=== PATIENT | female | born 1935 | race Hispanic/Latino ===

== ENCOUNTER 2017-03-09 17:09 | Emergency (ER) | payer MEDICARE ==
[2017-03-09 17:20] VITALS: BMI 22.1
[2017-03-09] MEDS ORDERED: Sodium Chloride 0.9% 500 ML IV STA (17:48)
--- NOTE | 2017-03-09 18:05 | ED PDOC ---
Arrival/HPI - General Chief Complaint: Abdominal Pain Time Seen by Provider: 03/09/17 17:27 Historian: Patient - History of Present Illness Narrative History of Present Illness (Text): 03/09/17 18:10 81 yo F w/ PMH of HTN and high cholesterol, reports 2 day h/o generalized weakness, chills, bodyaches, headache, constant upper abdominal discomfort, nausea, dizziness described as lightheadedness when standing only with no vertigo since. Patient was well just days prior to the start of symptoms. States that she took tylenol at 4pm with improvement of her headache. She adds that she just got her flu shot last week. Also reports having labs done at pmd' s office 2 days ago, was told her platelets were low, had labs repeated yesterday and does not know the results of those test. She adds when the EMS arrived to her home, her BP was checked and was 160/90. Reports (-) worsening of symptoms with movement of head. Otherwise: (-) fever, (-) URI symptoms, (-) rash, (-) sore throat, (-) trauma, (-) tinnitus, (-) hearing loss, (-) chest pain, (-) dyspnea, (-) urinary symptoms, (-) vomiting, (-) diarrhea, (-) syncope , (-) GI bleeding, (-) sick contacts, (-) recent travel, (-) h/o migraine headaches or similar headaches in the past. PMD Condo Past Medical History - Provider Review Nursing Documentation Reviewed: Yes - Infectious Disease Hx of Infectious Diseases: None - Tetanus Immunization Tetanus Immunization: Up to Date - Cardiac Hx Hypertension: Yes Hx Pacemaker: No - Pulmonary Hx Respiratory Disorders: No - Neurological Hx Transient Ischemic Attacks (TIA): Yes - HEENT Hx Cataracts: Yes Hx Glaucoma: Yes Other/Comment: Cataract sx - Renal Hx Renal Disorder: No - Endocrine/Metabolic Hx Endocrine Disorders: No - Hematological/Oncological Hx Blood Disorders: No Hx Blood Transfusions: No Hx Blood Transfusion Reaction: No Other/Comment: Viamin B12 deficiency - Integumentary Hx Dermatological Disorder: No - Musculoskeletal/Rheumatological Hx Arthritis: Yes - Gastrointestinal Hx Gastroesophageal Reflux: Yes - Genitourinary/Gynecological Hx Genitourinary Disorders: No - Psychiatric Hx Emotional Abuse: No Hx Physical Abuse: No Hx Substance Use: No - Past Surgical History Past Surgical History: No Previous - Surgical History Hx Appendectomy: Yes Hx Cholecystectomy: Yes Hx Hysterectomy: Yes - Anesthesia Hx Anesthesia: Yes Hx Anesthesia Reactions: No Hx Malignant Hyperthermia: No - Suicidal Assessment Feels Threatened In Home Enviroment: No Family/Social History - Physician Review Nursing Documentation Reviewed: Yes Family/Social History: No Known Family HX Smoking Status: Never Smoked Hx Alcohol Use: No Hx Substance Use: No Hx Substance Use Treatment: No Allergies/Home Meds Allergies/Adverse Reactions: Allergies shrimp Allergy (Verified 06/10/16 05:21) ANAPHYLAXIS codeine Adverse Reaction (Verified 06/10/16 05:21) ANAPHYLAXIS metronidazole [From Flagyl] Adverse Reaction (Verified 06/12/16 09:11) hallucinations Home Medications: Home Meds Medication Instructions Recorded Confirmed Cyanocobalamin [Vitamin B12 1000 3,000 mcg PO DAILY 05/14/13 03/09/17 mcg Tab] Folic Acid 1 mg PO DAILY 05/14/13 03/09/17 Latanoprost 0.005% Opht [Xalatan 1 drop OU DAILY 05/14/13 03/09/17 Opht] Omeprazole [Prilosec] 20 mg PO QAM 05/14/13 03/09/17 Simvastatin 40 mg PO DAILY 05/14/13 03/09/17 amLODIPine [Norvasc] 5 mg PO QAM 05/14/13 03/09/17 Ascorbate Calcium [Vitamin C] 500 mg PO DAILY 06/10/16 03/09/17 Aspirin [Ecotrin] 162 mg PO DAILY 06/10/16 03/09/17 Ergocalciferol (Vitamin D2) 4,000 unit PO DAILY 06/10/16 03/09/17 [Vitamin D] Review of Systems - Review of Systems Constitutional: Normal, Fatigue. absent: Weight Change, Fevers ENT: Normal. absent: Sore Throat, Rhinorrhea, Sinus Congestion Respiratory: Normal. absent: SOB, Cough, Sputum Cardiovascular: Normal. absent: Chest Pain, Palpitations, Edema Gastrointestinal: Normal, Abdominal Pain, Nausea. absent: Constipation, Diarrhea, Vomiting Genitourinary Female: Normal. absent: Dysuria, Frequency, Hematuria Musculoskeletal: Normal. absent: Arthralgias, Back Pain, Neck Pain Skin: Normal. absent: Rash, Pruritis, Skin Lesions Neurological: Normal, Headache, Dizziness. absent: Focal Weakness Physical Exam - Physical Exam Narrative Physical Exam (Text): 03/09/17 18:19 GENERAL APPEARANCE: Patient is awake, alert, oriented x 3, in no acute distress. SKIN: Warm, dry; (-) cyanosis. HEAD: (-) scalp swelling or tenderness. EYES: (-) conjunctival pallor. ENMT: TMs normal. Mucous membranes dry. NECK: (-) tenderness, (-) stiffness, (-) lymphadenopathy. Carotids: (-) bruit. CHEST AND RESPIRATORY: (-) rales, (-) rhonchi, (-) wheezes; breath sounds equal bilaterally. HEART AND CARDIOVASCULAR: (-) irregularity; (-) murmur, (-) gallop. ABDOMEN AND GI: Soft; (-) distention, (-) tenderness, (-) rebound, (-) guarding , (-) palpable masses, (-) flank tenderness. EXTREMITIES: (-) deformity; (-) edema. Distal pulses: present. NEURO AND PSYCH: Mental status as above. financial brokers: (+) horizontal nystagmus; Pupils equal & reactive, EOMI, (-) facial asymmetry; (-) dysarthria; tongue and uvula midline. Strength and DTRs symmetric. Gait: normal. Vital Signs Temp Pulse Resp BP Pulse Ox 03/09/17 20:37 77 17 141/75 98 03/09/17 19:33 71 16 145/72 100 03/09/17 18:45 99.0 F 03/09/17 17:28 97.9 F 75 18 147/69 100 Medical Decision Making ED Course and Treatment: 03/09/17 18:19 81 yo F w/ PMH of HTN and high cholesterol, reports 2 day h/o generalized weakness, chills, bodyaches, headache, constant upper abdominal discomfort, nausea, dizziness described as lightheadedness when standing only with no vertigo since. DDx: r/o UTI, viral illness, dehydration Plan : - Labs - EKG - CXR - IVF - Pepcid IV / zofran IV - CT head - UA Rectal T 99. EKG : NSR at 76 bpm, normal axis, (-) acute ST changes, as read by BOSSMAN. CXR : NAD, as read by BOSSMAN 03/09/17 18:[address]: Creator : Rudy Zuniga COMPARISON: Comparison made with prior CT scan brain 10/03/2013 FINDINGS: HEMORRHAGE: No acute parenchymal, subarachnoid nor extra-axial hemorrhage. BRAIN: Mild chronic periventricular white matter ischemic changes again seen extending peripherally into the deep and to a lesser degree scattered about subcortical white matter both cerebral hemispheres. In addition, there are a few tiny scattered chronic bilateral basal nuclei lacunar type infarcts. . Mild to moderate generalized volume loss. VENTRICLES: No obstructive hydrocephalus CALVARIUM: No acute calvarial fractures however the calvarium is somewhat dense in appearance. . PARANASAL SINUSES: Visualized paranasal sinuses are well-developed and currently well-aerated. MASTOID AIR CELLS: There is mild sclerosis and under pneumatization of the inferior aspect right mastoid air complex compared to the left side OTHER FINDINGS: Re- demonstrated are changes of right-sided cataract surgery. IMPRESSION: No acute intracranial hemorrhage. 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 Mild-moderate generalized volume loss. The calvarium is somewhat dense in appearance nonspecific. Clinical correlation with laboratory values such as but not limited to calcium - phosphate product suggested. Rule out renal osteodystrophy or other metabolic abnormality Labs reviewed : wbc, hgb/hct and platelets are wnl, CMP is wnl. UA and rapid flu still pending. On re-evaluation, patient states that she feels well, sitting up in bed in no acute distress. Lab, CXR and CT results d/w the patient and her daughter. VS : P 71 BP 145/72 R 16 O2sat 100%RA. Rapid flu (-), UA shows slight UTI. Macrobid po ordered. Patient and daughter notified of UA results. On re-evaluation, patient states that she feels well, denies any headache, dizziness, CP, SOB, N/V or abdominal pain at this time. On exam, patient remains awake, alert and oriented x3. Lungs CTA, cardiac RRR, abdomen is soft and non-tender, no CVA tenderness. Repeat neuro exam shows no focal findings. Patient able to stand up out of bed and ambulate to the bathroom without assistance with a steady gait. VS : P 77 BP 141/75 R 17 O2sat 98%RA. Patient states that she lives with her , who is very independent and her daughter is able to check in on her daily, she states that she would rather go home and feels comfortable being d/c with outpt f/u with pmd. Advised to follow up with primary care physician in 1-2 days without fail. Advised to take medication as prescribed. Return to the emergency room at any time for any new or worsening symptoms. Patient states she fully agrees with and understands discharge instructions. States that she agrees with the plan and disposition. Verbalized and repeated discharge instructions and plan. I have given the patient opportunity to ask any additional questions. - Lab Interpretations Lab Results: 03/09/17 17:50 03/09/17 17:50 Lab Results 03/09/17 19:18: Influenza Typ A,B (EIA) Negative for flu a/b 03/09/17 19:10: Urine Color Straw, Urine Appearance Clear, Urine pH 6.5, Ur Specific Bath <= 1.005, Urine Protein Negative, Urine Glucose (UA) Negative, Urine Ketones Negative, Urine Blood Trace-lysed H, Urine Nitrate Negative, Urine Bilirubin Negative, Urine Urobilinogen 0.2, Ur Leukocyte Esterase Trace H , Urine RBC 0 - 2, Urine WBC 0 - 2, Ur Epithelial Cells 0 - 2, Urine Bacteria Occ 03/09/17 17:50: Sodium 139, Potassium 3.9, Chloride 104, Carbon Dioxide 21, Anion Gap 18, BUN 12, Creatinine 0.7, Est GFR ( Amer) > 60, Est GFR (Non- Af Amer) > 60, Random Glucose 185 H, Calcium 9.8, Total Bilirubin 0.7, AST 27, ALT 28, Alkaline Phosphatase 99, Troponin I < 0.01, Total Protein 7.3, Albumin 4.5, Globulin 2.8, Albumin/Globulin Ratio 1.6, Lipase 54 03/09/17 17:50: PT 11.8, INR 1.09 H, APTT 26.5 03/09/17 17:50: WBC 6.2, RBC 4.16, Hgb 13.4, Hct 38.0, MCV 91.3, MCH 32.2, MCHC 35.3, RDW 13.1, Plt Count 193, MPV 11.9 H, Gran % 67.2, Lymph % (Auto) 26.2, [place] % (Auto) 5.3, Eos % (Auto) 1.0 L, Baso % (Auto) 0.3, Gran # 4.17, Lymph # 1.6, [place] # 0.3, Eos # 0.1, Baso # 0.02 I have reviewed the lab results: Yes - RAD Interpretation Radiology Orders: 03/09/17 17:46 HEAD W/O CONTRAST [CT] Stat 03/09/17 17:47 CHEST ONE VIEW [RAD] Stat Mower Mechanic: Radiologist - EKG Interpretation Interpreted by ED Physician: Yes Type: 12 lead EKG - Medication Orders Current Medication Orders: Discontinued Medications Famotidine (Pepcid) 20 mg IVP STAT STA Stop: 03/09/17 17:50 Last Admin: 03/09/17 18:41 Dose: 20 mg IVP Administration Document 03/09/17 18:41 SF (Rec: 03/09/17 18:41 SF [facility] [id number]) Charges for Administration # of IVP Administrations 1 Sodium Chloride (Sodium Chloride 0.9%) 500 mls @ 500 mls/hr IV .Q1H STA Stop: 03/09/17 18:47 Last Admin: 03/09/17 18:42 Dose: 500 mls/hr eMAR Start Stop Document 03/09/17 18:42 SF (Rec: 03/09/17 18:42 SF [facility] [id number]) Intravenous Solution Start Date 03/09/17 Start Time 18:30 End Date 03/09/17 End time 19:30 Total Infusion Time 60 Nitrofurantoin Macrocrystals (Macrobid) 100 mg PO ONCE ONE Stop: 03/09/17 20:22 Last Admin: 03/09/17 20:49 Dose: 100 mg Ondansetron HCl (Zofran Inj) 4 mg IVP STAT STA Stop: 03/09/17 17:50 Last Admin: 03/09/17 18:41 Dose: 4 mg IVP Administration Document 03/09/17 18:41 SF (Rec: 03/09/17 18:41 SF [facility] [id number]) Charges for Administration # of IVP Administrations 1 - PA / BSA OFFICER / Resident Statement MD/DO has examined the patient and agrees with the treatment plan. Disposition/Present on Arrival - Present on Arrival Any Indicators Present on Arrival: No History of DVT/PE: No History of Uncontrolled Diabetes: No Urinary Catheter: No History of Decub. Ulcer: No History Surgical Site Infection Following: None - Disposition Have Diagnosis and Disposition been Completed?: Yes Diagnosis: UTI (urinary tract infection), Weakness, Dizziness Disposition: HOME/ ROUTINE Disposition Time: 20:59 Patient Plan: Discharge Patient Problems: Current Active Problems Problem Status Onset Dizziness Acute UTI (urinary tract infection) Acute Weakness Acute Condition: IMPROVED Discharge Instructions (ExitCare): Urinary Tract Infection in Women (ED), Weakness (ED), Dizziness (ED) Print Language: ERITREAN Additional Instructions: Thank you for letting us take care of you today. You were treated for weakness, UTI, dizziness. The emergency medical care you received today was directed at your acute symptoms. If you were prescribed any medication, please fill it and take as directed. It may take several days for your symptoms to resolve. Return to the Emergency Department if your symptoms worsen, do not improve, or if you have any other problems. Please contact your doctor in 2 days for re-evaluation and follow up. Bring any paperwork you were given at discharge with you along with any medications you are taking to your follow up visit. Our treatment cannot replace ongoing medical care by a primary care provider (PCP) outside of the emergency department. Thank you for allowing the [facility] team to be part of your care today. If you had an X-Ray or CT scan: A Radiologist will review the ED reading if any change in treatment is needed we will contact you. If you had a urine culture: It will take several days for the results, if any change in treatment is needed we will contact you. Prescriptions: Nitrofurantoin Macrocrystals [Macrobid] 100 mg PO BID #[id number] Referrals: Tone Bernard, [Primary Care Provider] - Follow up with primary Forms: [place] [facility] (Estonian)
[2017-03-09 18:20] LABS: ALB/GLOB RATIO 1.6 (1.1-1.8); ALKALINE PHOSPHATASE 99 U/L (38-126); ALT/SGPT 28 U/L (7-56); AST/SGOT 27 U/L (14-36); BILIRUBIN,TOTAL 0.7 mg/dL (0.2-1.3); BLOOD UREA NITROGEN 12 mg/dL (7-21); CALCIUM 9.8 mg/dL (8.4-10.5); CARBON DIOXIDE 21 mmol/L (21-33); CHLORIDE 104 mmol/L (98-107); GFR AFRICAN-AMERICAN > 60; GLUCOSE,RANDOM 185 mg/dL (70-110); LIPASE 54 U/L (23-300); POTASSIUM 3.9 mmol/L (3.6-5.0); SODIUM 139 mmol/L (132-148); TOTAL PROTEIN 7.3 g/dL (5.8-8.3)
[2017-03-09 18:25] LABS: BASO # 0.02 K/mm3 (0.0-2.0); BASO % 0.3 % (0.0-3.0); EOS # 0.1 (0.0-0.7); GRAN # 4.17 (1.4-6.5); GRAN % 67.2 % (50.0-68.0); LYMPH # 1.6 (1.2-3.4); LYMPH % 26.2 % (22.0-35.0); MEAN CELL VOLUME 91.3 fl (80.0-105.0); MEAN CORPUSCULAR HEMOGLOBIN 32.2 pg (25.0-35.0); MEAN CORPUSCULAR HGB CONC 35.3 g/dl (31.0-37.0); MEAN PLATELET VOLUME 11.9 fl (7.0-11.0); MONO # 0.3 (0.1-0.6); MONO % 5.3 % (1.0-6.0); RED CELL DISTRIBUTION WIDTH 13.1 % (11.5-14.5); WHITE BLOOD COUNT 6.2 10^3/ul (4.5-11.0)
--- NOTE | 2017-03-09 18:31 | CT ---
PROCEDURE: CT scan of the brain dated 03/09/2017 HISTORY: Weakness. COMPARISON: Comparison made with prior CT scan brain 10/03/2013 TECHNIQUE: Axial computed tomography images were obtained through the head/brain without intravenous contrast. Radiation dose: Total exam DLP = 843.77 mGy-cm. This CT exam was performed using one or more of the following dose reduction techniques: Automated exposure control, adjustment of the mA and/or kV according to patient size, and/or use of iterative reconstruction technique. FINDINGS: HEMORRHAGE: No acute parenchymal, subarachnoid nor extra-axial hemorrhage. BRAIN: Mild chronic periventricular white matter ischemic changes again seen extending peripherally into the deep and to a lesser degree scattered about subcortical white matter both cerebral hemispheres. In addition, there are a few tiny scattered chronic bilateral basal nuclei lacunar type infarcts. . Mild to moderate generalized volume loss. VENTRICLES: No obstructive hydrocephalus CALVARIUM: No acute calvarial fractures however the calvarium is somewhat dense in appearance. . PARANASAL SINUSES: Visualized paranasal sinuses are well-developed and currently well-aerated. MASTOID AIR CELLS: There is mild sclerosis and under pneumatization of the inferior aspect right mastoid air complex compared to the left side OTHER FINDINGS: Re- demonstrated are changes of right-sided cataract surgery. IMPRESSION: No acute intracranial hemorrhage. 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 Mild-moderate generalized volume loss. The calvarium is somewhat dense in appearance nonspecific. Clinical correlation with laboratory values such as but not limited to calcium - phosphate product suggested. Rule out renal osteodystrophy or other metabolic abnormality
[2017-03-09 18:32] LABS: INR 1.09 (0.93-1.08); PARTIAL THROMBOPLASTIN TIME 26.5 Seconds (23.7-30.8)
[2017-03-09 18:36] LABS: TROPONIN I < 0.01 ng/mL
[2017-03-09 18:45] VITALS: TEMP 99
[2017-03-09 19:49] LABS: PH,URINE 6.5 (4.7-8.0); URINE BILIRUBIN NEGATIVE (NEGATIVE); URINE BLOOD TRACE-LYSED (NEGATIVE); URINE GLUCOSE (UA) NEGATIVE (NEGATIVE); URINE KETONE NEGATIVE (NEGATIVE); URINE LEUKOCYTE ESTERASE TRACE Leu/uL (NEGATIVE); URINE PROTEIN NEGATIVE mg/dL (<30 mg/dL); URINE UROBILINOGEN 0.2 E.U./dL (<1 E.U./dL)
[2017-03-09 19:54] LABS: URINE APPEARANCE CLEAR (CLEAR); URINE COLOR STRAW (YELLOW)
[2017-03-09 20:01] LABS: URINE BACTERIA OCC (NEG); URINE EPITHELIAL CELLS 0 - 2 /hpf (0-5); URINE RBC 0 - 2 /hpf (0-2); URINE WBC 0 - 2 /hpf (0-6)
[2017-03-09 20:37] VITALS: BP 141/75; PULSE 77; RESP 17; O2SAT 98
--- NOTE | 2017-03-10 09:50 | RAD ---
PROCEDURE: CHEST RADIOGRAPH, 1 VIEW HISTORY: weakness COMPARISON: Comparison chest 06/10/2016 FINDINGS: LUNGS: Mild hyperinflation ; rule out underlying chronic changes of emphysema or COPD. . Lung khalil clear without focal consolidation. Suspect minor biapical pleural thickening left greater than right. PLEURA: As above. No pneumothorax or pleural fluid seen. CARDIOVASCULAR: Normal. OSSEOUS STRUCTURES: No significant abnormalities. VISUALIZED UPPER ABDOMEN: Normal. OTHER FINDINGS: None. IMPRESSION: Mild hyperinflation. Rule out chronic changes of emphysema or COPD. No focal consolidation. . Mild biapical pleural thickening left greater than right
--- NOTE | 2017-03-10 14:26 | CARD ---
APPROVED REPORT EKG Measurement Heart [id number] <Conclusion> Normal sinus rhythm Base line carey polanco
== END 2017-03-09 23:00 | disposition home or self-care (01) ==
LOC: ED 17:09
DX: N39.0 Urinary tract infection, site not specified (principal); R42 Dizziness and giddiness; R53.1 Weakness; I10 Essential (primary) hypertension; E78.00 Pure hypercholesterolemia, unspecified
CPT/HCPCS: 70450; 71010; 80053; 81001; 83690; 84484; 85025; 85610; 85730; 87086; 87804; 93005; 96361; 96374; 96375; 99285; J2405; J7040

== ENCOUNTER 2017-03-15 20:49 | Observation (INO) | payer MEDICARE ==
--- NOTE | 2017-03-15 21:37 | ED PDOC ---
Arrival/HPI - General Time Seen by Provider: 03/15/17 20:52 Historian: Patient - History of Present Illness Narrative History of Present Illness (Text): 03/15/17 21:20 Lily Andino is an 81 year old female, whose past medical history includes arthritis, HTN, and high cholesterol, who presents to the emergency department complaining of near syncope and lightheadedness while walking today. Patient states that she was prescribed Zoloft by her PMD four days ago and has had associated epigastric pain with a mild sinus headache. Patient denies any chest pain, shortness of breath, diarrhea, urinary symptoms, or any other complaints at this time. Patient seen 6 days ago by me, complaining of body aches. CT head negative. Cxray negative. Flu negative. Ucx negative. Cxray negative. Trop negative PMD: Dr. Pop 03/15/17 23:59 03/16/17 00:00 Time/Duration: 1-3 hours Symptom Onset: Sudden Activities at Onset: Light Context: Home Past Medical History - Provider Review Nursing Documentation Reviewed: Yes - Infectious Disease Hx of Infectious Diseases: None - Tetanus Immunization Tetanus Immunization: Up to Date - Cardiac Hx Hypertension: Yes Hx Pacemaker: No - Pulmonary Hx Respiratory Disorders: No - Neurological Hx Transient Ischemic Attacks (TIA): Yes - HEENT Hx Cataracts: Yes Hx Glaucoma: Yes Other/Comment: Cataract sx - Renal Hx Renal Disorder: No - Endocrine/Metabolic Hx Endocrine Disorders: No - Hematological/Oncological Hx Blood Disorders: No Hx Blood Transfusions: No Hx Blood Transfusion Reaction: No Other/Comment: Viamin B12 deficiency - Integumentary Hx Dermatological Disorder: No - Musculoskeletal/Rheumatological Hx Arthritis: Yes - Gastrointestinal Hx Gastroesophageal Reflux: Yes - Genitourinary/Gynecological Hx Genitourinary Disorders: No - Psychiatric Hx Emotional Abuse: No Hx Physical Abuse: No Hx Substance Use: No - Past Surgical History Past Surgical History: No Previous - Surgical History Hx Appendectomy: Yes Hx Cholecystectomy: Yes Hx Hysterectomy: Yes - Anesthesia Hx Anesthesia: Yes Hx Anesthesia Reactions: No Hx Malignant Hyperthermia: No - Suicidal Assessment Feels Threatened In Home Enviroment: No Family/Social History - Physician Review Nursing Documentation Reviewed: Yes Family/Social History: No Known Family HX Smoking Status: Never Smoked Hx Alcohol Use: No Hx Substance Use: No Hx Substance Use Treatment: No Allergies/Home Meds Allergies/Adverse Reactions: Allergies shrimp Allergy (Verified 06/10/16 05:21) ANAPHYLAXIS codeine Adverse Reaction (Verified 06/10/16 05:21) ANAPHYLAXIS metronidazole [From Flagyl] Adverse Reaction (Verified 06/12/16 09:11) hallucinations Home Medications: Home Meds Medication Instructions Recorded Confirmed Cyanocobalamin [Vitamin B12 1000 3,000 mcg PO DAILY 05/14/13 03/09/17 mcg Tab] Folic Acid 1 mg PO DAILY 05/14/13 03/09/17 Latanoprost 0.005% Opht [Xalatan 1 drop OU DAILY 05/14/13 03/09/17 Opht] Omeprazole [Prilosec] 20 mg PO QAM 05/14/13 03/09/17 Simvastatin 40 mg PO DAILY 05/14/13 03/09/17 amLODIPine [Norvasc] 5 mg PO QAM 05/14/13 03/09/17 Ascorbate Calcium [Vitamin C] 500 mg PO DAILY 06/10/16 03/09/17 Aspirin [Ecotrin] 162 mg PO DAILY 06/10/16 03/09/17 Ergocalciferol (Vitamin D2) 4,000 unit PO DAILY 06/10/16 03/09/17 [Vitamin D] Review of Systems - Physician Review All systems were reviewed & negative as marked: Yes - Review of Systems Constitutional: absent: Fevers, Night Sweats Eyes: absent: Vision Changes ENT: absent: Hearing Changes Respiratory: absent: SOB, Cough Cardiovascular: Syncope (near syncope). absent: Chest Pain Gastrointestinal: Abdominal Pain (epigastric pain) Genitourinary Female: absent: Dysuria, Frequency Musculoskeletal: absent: Arthralgias Skin: absent: Rash, Pruritis Neurological: Other (lightheadedness) Endocrine: absent: Diaphoresis Hemo/Lymphatic: absent: Adenopathy, Easy Bleeding Psychiatric: absent: Depression Physical Exam Vital Signs Reviewed: Yes Vital Signs Temp Pulse Resp BP Pulse Ox 03/15/17 21:15 98.1 F 68 18 170/92 H 99 Temperature: Afebrile Blood Pressure: Hypertensive Pulse: Regular Respiratory Rate: Normal Appearance: Positive for: Well-Appearing, Non-Toxic, Comfortable Pain Distress: None Mental Status: Positive for: Alert and Oriented X 3 - Systems Exam Head: Present: Atraumatic, Normocephalic Pupils: Present: PERRL Extroacular Muscles: Present: EOMI Conjunctiva: Present: Normal Mouth: Present: Moist Mucous Membranes Neck: Present: Normal Range of Motion Respiratory/Chest: Present: Clear to Auscultation, Good Air Exchange. No: Respiratory Distress, Accessory Muscle Use Cardiovascular: Present: Regular Rate and Rhythm, Normal S1, S2. No: Murmurs Abdomen: Present: Normal Bowel Sounds. No: Tenderness, Distention, Peritoneal Signs Back: Present: Normal Inspection Upper Extremity: Present: Normal Inspection. No: Cyanosis, Edema Lower Extremity: Present: Normal Inspection. No: Edema Neurological: Present: GCS=15, CN II-XII Intact, Speech Normal, Motor Func Grossly Intact, Normal Sensory Function, Normal Cerebellar Funct, Norm Deep Tendon Reflexes, Gait Normal, Memory Normal, Normal 2Pt Descrimination Skin: Present: Warm, Dry, Normal Color. No: Rashes Psychiatric: Present: Alert, Oriented x 3, Normal Insight, Normal Concentration Medical Decision Making ED Course and Treatment: 03/15/17 21:39 Impression: 81 year old female complaining of near syncope and lightheadedness while walking today. Neurologically intact in ED Differential Diagnosis included but are not limited to: Plan: -- Head CT w/o contrast -- Chest x-ray -- Urinalysis -- Labs -- Reassess and disposition Prior Visits: Notes and results from previous visits were reviewed. Patient last seen in the ED on 03/09/17 for generalized weakness, chills, bodyaches, headache, constant upper abdominal discomfort, nausea, dizziness described as lightheadedness when standing only with no vertigo. Patient was discharged home after negative Rapid Flu test and negative Urine Culture. Progress Notes: 03/15/17 23:30 CT Head Without Intravenous Contrast: Dictated and Authenticated by: Kylee Elias MD FINDINGS: Brain: No acute intracranial hemorrhage. Age-appropriate periventricular white matter disease. No edema. Ventricles: Age-appropriate ventriculomegaly. Bones: No acute displaced fracture. Sinuses: Unremarkable as visualized. No acute sinusitis. Mastoid air cells: Unremarkable as visualized. No mastoid effusion. IMPRESSION: No acute intracranial hemorrhage, or suspicious mass effect. 03/16/17 00:56 EKG shows NSR at 68bpm with normal intervals and no st changes. Labs grossly normal. Cxray negative. Aspirin given. Will admit for near syncope. 03/16/17 01:[address] Carver, who is aware and states to admit patient to telemetry observation for near syncope under his name. 03/16/17 01:25 - Lab Interpretations Lab Results: 03/15/17 23:10 03/15/17 23:10 Lab Results 03/15/17 23:10: WBC 7.7 D, RBC 4.37, Hgb 14.1, Hct 39.3, MCV 89.9, MCH 32.3, MCHC 35.9, RDW 12.8, Plt Count 201, MPV 11.5 H, Gran % 65.8, Lymph % (Auto) 27.6 , [place] % (Auto) 5.6, Eos % (Auto) 0.7 L, Baso % (Auto) 0.3, Gran # 5.06, Lymph # 2.1, [place] # 0.4, Eos # 0.1, Baso # 0.02 03/15/17 23:10: Urine Color Yellow, Urine Appearance Clear, Urine pH 6.0, Ur Specific [place] <= 1.005, Urine Protein Negative, Urine Glucose (UA) Negative, Urine Ketones Negative, Urine Blood Small H, Urine Nitrate Negative, Urine Bilirubin Negative, Urine Urobilinogen 0.2, Ur Leukocyte Esterase Negative, Urine RBC 1 - 3, Urine WBC 0 - 2, Ur Epithelial Cells 1 - 3, Urine Bacteria Rare 03/15/17 23:10: PT 11.5, INR 1.05, APTT 20.0 L 03/15/17 23:10: Sodium 136, Potassium 4.2, Chloride 101, Carbon Dioxide 22, Anion Gap 17, BUN 12, Creatinine 0.7, Est GFR ( Amer) > 60, Est GFR (Non- Af Amer) > 60, Random Glucose 121 H, Calcium 9.9, Phosphorus 3.2, Magnesium 2.2 , Total Bilirubin 1.0, AST 31, ALT 31, Alkaline Phosphatase 141 H D, Total Creatine Kinase 76, Troponin I < 0.01, NT-Pro-B Natriuret Pep 286, Total Protein 7.5, Albumin 4.6, Globulin 2.9, Albumin/Globulin Ratio 1.6 I have reviewed the lab results: Yes - RAD Interpretation Radiology Orders: 03/15/17 21:37 HEAD W/O CONTRAST [CT] Stat CHEST TWO VIEWS (PA/LAT) [RAD] Stat - Medication Orders Current Medication Orders: Discontinued Medications Aspirin (Aspirin Chewable) 324 mg PO STAT STA Stop: 03/16/17 00:48 Last Admin: 03/16/17 00:53 Dose: 324 mg - Scribe Statement The provider has reviewed the documentation as recorded by the Gilda Calloway Provider Scribe Attestation: All medical record entries made by the Gilda were at my direction and personally dictated by me. I have reviewed the chart and agree that the record accurately reflects my personal performance of the history, physical exam, medical decision making, and the department course for this patient. I have also personally directed, reviewed, and agree with the discharge instructions and disposition. Disposition/Present on Arrival - Present on Arrival Any Indicators Present on Arrival: No History of DVT/PE: No History of Uncontrolled Diabetes: No Urinary Catheter: No History Surgical Site Infection Following: None - Disposition Have Diagnosis and Disposition been Completed?: Yes Diagnosis: Near syncope Disposition: HOSPITALIZED Disposition Time: 00:56 Patient Problems: Current Active Problems Problem Status Onset Near syncope Acute Condition: GOOD
[2017-03-15 22:30] VITALS: BMI 22.3
--- NOTE | 2017-03-15 23:03 | CT ---
EXAM: CT Head Without Intravenous Contrast CLINICAL HISTORY: 81 years old, female; Signs and symptoms; Syncope and collapse; Additional info: Near syncope TECHNIQUE: Axial computed tomography images of the head/brain without intravenous contrast. All CT scans at this facility use one or more dose reduction techniques, viz.: automated exposure control; ma/kV adjustment per patient size (including targeted exams where dose is matched to indication; i.e. head); or iterative reconstruction technique. COMPARISON: CT - HEAD W/O CONTRAST 2017-03-09 18:19 FINDINGS: Brain: No acute intracranial hemorrhage. Age-appropriate periventricular white matter disease. No edema. Ventricles: Age-appropriate ventriculomegaly. Bones: No acute displaced fracture. Sinuses: Unremarkable as visualized. No acute sinusitis. Mastoid air cells: Unremarkable as visualized. No mastoid effusion. IMPRESSION: No acute intracranial hemorrhage, or suspicious mass effect.
[2017-03-15 23:23] LABS: URINE BILIRUBIN NEGATIVE (NEGATIVE); URINE BLOOD SMALL (NEGATIVE); URINE GLUCOSE (UA) NEGATIVE (NEGATIVE); URINE KETONE NEGATIVE (NEGATIVE); URINE LEUKOCYTE ESTERASE NEGATIVE Leu/uL (NEGATIVE); URINE PROTEIN NEGATIVE mg/dL (<30 mg/dL); URINE UROBILINOGEN 0.2 E.U./dL (<1 E.U./dL)
[2017-03-15 23:25] LABS: URINE APPEARANCE CLEAR (CLEAR); URINE COLOR YELLOW (YELLOW)
[2017-03-15 23:31] LABS: INR 1.05 (0.93-1.08)
[2017-03-15 23:34] LABS: ALB/GLOB RATIO 1.6 (1.1-1.8); ALKALINE PHOSPHATASE 141 U/L (38-126); ALT/SGPT 31 U/L (7-56); AST/SGOT 31 U/L (14-36); BLOOD UREA NITROGEN 12 mg/dL (7-21); CALCIUM 9.9 mg/dL (8.4-10.5); CARBON DIOXIDE 22 mmol/L (21-33); CHLORIDE 101 mmol/L (98-107); GFR AFRICAN-AMERICAN > 60; GLUCOSE,RANDOM 121 mg/dL (70-110); MAGNESIUM 2.2 mg/dL (1.7-2.2); PHOSPHOROUS 3.2 mg/dL (2.5-4.5); POTASSIUM 4.2 mmol/L (3.6-5.0); SODIUM 136 mmol/L (132-148); TOTAL PROTEIN 7.5 g/dL (5.8-8.3)
[2017-03-15 23:50] LABS: URINE BACTERIA RARE (NEG); URINE WBC 0 - 2 /hpf (0-6)
[2017-03-15 23:55] LABS: BASO # 0.02 K/mm3 (0.0-2.0); BASO % 0.3 % (0.0-3.0); EOS # 0.1 (0.0-0.7); EOS % 0.7 % (1.5-5.0); GRAN # 5.06 (1.4-6.5); GRAN % 65.8 % (50.0-68.0); HEMATOCRIT 39.3 % (36.0-48.0); LYMPH # 2.1 (1.2-3.4); LYMPH % 27.6 % (22.0-35.0); MEAN CELL VOLUME 89.9 fl (80.0-105.0); MEAN CORPUSCULAR HEMOGLOBIN 32.3 pg (25.0-35.0); MEAN CORPUSCULAR HGB CONC 35.9 g/dl (31.0-37.0); MEAN PLATELET VOLUME 11.5 fl (7.0-11.0); MONO # 0.4 (0.1-0.6); MONO % 5.6 % (1.0-6.0); RED CELL DISTRIBUTION WIDTH 12.8 % (11.5-14.5); WHITE BLOOD COUNT 7.7 10^3/ul (4.5-11.0)
[2017-03-16 00:01] LABS: TROPONIN I < 0.01 ng/mL
[2017-03-16 02:46] VITALS: O2SAT 98
[2017-03-16] MEDS ORDERED: Alum-Mag Hydrox-Simethicone Susp (30 mL) PO ONE (03:43)
[2017-03-16] MEDS ORDERED: Pantoprazole 40 mg EC Tab PO ONE (04:00)
[2017-03-16 05:57] VITALS: RESP 19
--- NOTE | 2017-03-16 08:51 | RAD ---
HISTORY: near syncope COMPARISON: 03/09/2017 TECHNIQUE: Chest PA and lateral FINDINGS: LUNGS: Pulmonary hyperinflation. Increased A-P diameter of the thorax. Consistent with COPD/emphysema. No infiltrate. Calcified nodular density at left base not seen on prior examination of 03/09/2017. Possible related to calcified costal cartilage. Followup advised. PLEURA: No significant pleural effusion identified. No pneumothorax apparent. CARDIOVASCULAR: Normal. OSSEOUS STRUCTURES: No significant abnormalities. VISUALIZED UPPER ABDOMEN: Normal. OTHER FINDINGS: None. IMPRESSION: Pulmonary emphysema. Calcified nodule at left base may be artifact due to costal cartilage calcification. Follow-up advised.
--- NOTE | 2017-03-16 09:18 | CP.PCM.HP ---
<Jayleen Dumas - Last Filed: 03/16/17 11:47> History of Present Illness - History of Present Illness History of Present Illness: PGY-2 h&p [address] Dr[address] Montoya 81 year old female with past medical history of arthritis, HTN, anxiety, high cholesterol, TIA, who presents to the emergency department complaining of near syncope and lightheadedness while walking today. Patient also reports general weakness and body aches for last 2 weeks. Patient was seen in ED last week, CT head, Cxr, flu, Ucx and trop were negative. Patient state that she was prescribed Zoloft by her PMD four days ago and has had associated epigastric pain. She states that for the past few days she has not been sleeping and has decreased appetite. She also reports hallucinations, patient states that she at times see shadows and objects on the wall. This started earlier this year. Patient has seen an eye doctor and psych. Patient denies any chest pain, shortness of breath, diarrhea, urinary symptoms, or any other complaints at this time. Patient denies any recent trauma, sick contacts or recent travels. PMH: arthritis, HTN, anxiety, high cholesterol, TIA PSH: appendectomy, cholecystectomy social hx: denies smoking, alcohol use, illicit drug use family hx: denies allergy: shrimp, codeine, metronidazole home meds: norvasc, simvastatin, latanoprost, asa, prilosec, folic acid, vit D, Vit B12, vit C Present on Admission - Present on Admission Any Indicators Present on Admission: No Review of Systems - Constitutional Constitutional: Fatigue. absent: Fever, Headache - EENT Eyes: absent: Change in Vision Nose/Mouth/Throat: absent: Nasal Congestion, Sore Throat - Cardiovascular Cardiovascular: absent: Chest Pain, Dyspnea, Leg Edema, Palpitations - Respiratory Respiratory: absent: Cough, Dyspnea, Hemoptysis - Gastrointestinal Gastrointestinal: absent: Abdominal Pain, Constipation, Diarrhea, Nausea, Vomiting - Genitourinary Genitourinary: absent: Dysuria, Hematuria - Musculoskeletal Musculoskeletal: absent: Arthralgias, Back Pain, Myalgias, Neck Pain, Numbness, Stiffness - Integumentary Integumentary: absent: Pruritus, Rash, Skin Ulcer, Sores - Neurological Neurological: Dizziness, Weakness. absent: Headaches, Loss of Vision, Syncope - Psychiatric Psychiatric: Anxiety, Change in Appetite, Hallucinations - Hematologic/Lymphatic Hematologic: absent: Easy Bleeding, Easy Bruising Past Patient History - Infectious Disease Hx of Infectious Diseases: None - Tetanus Immunizations Tetanus Immunization: Up to Date - Past Social History Smoking Status: Never Smoked - CARDIAC Hx Cardiac Disorders: Yes Hx Angina: No Hx Cardia Arrhythmia: No Hx Circulatory Problems: No Hx Congestive Heart Failure: No Hx Heart Murmur: No Hx Heart Transplant: No Hx Hypercholesterolemia: Yes Hx Hypertension: Yes Hx Internal Defibrillator: No Hx Mitral Valve Prolapse: No Hx Pacemaker: No Hx Peripheral Edema: No Hx Peripheral Vascular Disease: No - PULMONARY Hx Respiratory Disorders: No Hx Asthma: No Hx Bronchitis: No Hx Chronic Obstructive Pulmonary Disease (COPD): No Hx Emphysema: No Hx Pneumonia: No Hx Respiratory Aspiration: No Hx Respiratory Tract Infection: No Hx Sleep Apnea: No Hx Tuberculosis: No - NEUROLOGICAL Hx Neurological Disorder: Yes Hx Alzheimer's Disease: No HX Cerebrovascular Accident: No Hx Dementia: No Hx Dizziness: Yes Hx Meningitis: No Hx Migraine: No Hx Parkinson's Disease: No Hx Seizures: No Hx Transient Ischemic Attacks (TIA): Yes - HEENT Hx HEENT Problems: Yes Hx Blind: No Hx Cataracts: Yes Hx Deafness: No Hx Difficulty Chewing: No Hx Epistaxis: No Hx Glaucoma: Yes Hx Macular Degeneration: No - RENAL Hx Chronic Kidney Disease: No Hx Dialysis: No Hx Kidney Stones: No Hx Neurogenic Bladder: No Hx Pyelonephritis: No Hx Renal (Kidney) Cancer: No Hx Renal Failure: No - ENDOCRINE/METABOLIC Hx Endocrine Disorders: No Hx Adrenal Cancer: No Hx Diabetes Insipidus: No Hx Diabetes Mellitus Type 1: No Hx Diabetes Mellitus Type 2: No Hx Hyperthyroidism: No Hx Hypothyroidism: No Hx Systemic Lupus Erythematosus: No - HEMATOLOGICAL/ONCOLOGICAL Hx Blood Disorders: No Hx AIDS: No Hx Anemia: No Hx Cancer: No Hx Chemotherapy: No Hx Cirrhosis: No Hx Hemophilia: No Hx Hepatitis A: No Hx Hepatitis B: No Hx Hepatitis C: No Hx Human Immunodeficiency Virus (HIV): No Hx Metastesis: No Hx Shingles: No Hx Sickle Cell Disease: No Hx Unexplained Bleeding: No - INTEGUMENTARY Hx Dermatological Problems: No Hx Basil Cell: No Hx Eczema: No Hx Melanoma: No Hx Psoriasis: No Hx Squamous Cell: No - MUSCULOSKELETAL/RHEUMATOLOGICAL Hx Musculoskeletal Disorders: Yes Hx Arthritis: Yes Hx Back Pain: No Hx Degenerative Joint Disease: No Hx Falls: No Hx Fractures: No Hx Gout: No Hx Herniated Disk: No Hx Myasthenia Gravis: No Hx Osteoarthritis: No Hx Osteomyelitis: No Hx Osteoporosis: No Hx Rhabdomyolysis: No Hx Spinal Stenosis: No Hx Unsteady Gait: No - GASTROINTESTINAL Hx Gastrointestinal Disorders: Yes Hx Colostomy: No Hx Crohn's Disease: No Hx Diverticulitis: No Hx Gall Bladder Disease: Yes Hx Gastroesophageal Reflux: Yes Hx Ileostomy: No Hx Liver Failure: No Hx Pancreatitis: No HX Swallowing Problems: No Hx Ulcer: No - GENITOURINARY/GYNECOLOGICAL Hx Genitourinary Disorders: Yes Hx Hematuria: No Hx Incontinence: No Hx Sexually Transmitted Disorders: No Hx Urinary Tract Infection: Yes - PSYCHIATRIC Hx Psychophysiologic Disorder: Yes Hx Anxiety: Yes Hx Bipolar Disorder: No Hx Depression: No Hx Emotional Abuse: No Hx Hallucinations: No Hx Panic Symptoms: No Hx Paranoia: No Hx Post Traumatic Stress Disorder: No Hx Psychosis: No Hx Physical Abuse: No Hx Schizophrenia: No Hx Sexual Abuse: No - SURGICAL HISTORY Hx Surgeries: Yes Hx Amputation: No Hx Appendectomy: Yes Hx Cardiac Catheterization: No Hx Cholecystectomy: Yes Hx Coronary Stent: No Hx Gastric Bypass Surgery: No Hx Hysterectomy: No Hx Joint Replacement: No Hx Kidney Transplant: No Hx Liver Transplant: No Hx Mastectomy: No Hx Musculoskeletal Surgery: No Hx Open Heart Surgery: No Hx Orthopedic Surgery: No Hx Splenectomy: No Hx Valve Replacement: No - ANESTHESIA Hx Anesthesia: Yes Hx Anesthesia Reactions: No Hx Malignant Hyperthermia: No Meds Allergies/Adverse Reactions: Allergies Allergy/AdvReac Type Severity Reaction Status Date / Time shrimp Allergy ANAPHYLAXIS Verified 06/10/16 05:21 codeine AdvReac ANAPHYLAXIS Verified 06/10/16 05:21 metronidazole [From Flagyl] AdvReac hallucinati Verified 06/12/16 09:11 ons Physical Exam - Constitutional Appears: No Acute Distress - Head Exam Head Exam: ATRAUMATIC, NORMAL INSPECTION, NORMOCEPHALIC - Eye Exam Eye Exam: EOMI, Normal appearance - ENT Exam ENT Exam: Mucous Membranes Moist - Respiratory Exam Respiratory Exam: Clear to Auscultation Bilateral, NORMAL BREATHING PATTERN. absent: Decreased Breath Sounds, Rales, Rhonchi, Wheezes, Respiratory Distress - Cardiovascular Exam Cardiovascular Exam: REGULAR RHYTHM. absent: Tachycardia, Diastolic murmur, Systolic Murmur - GI/Abdominal Exam GI & Abdominal Exam: Normal Bowel Sounds, Soft. absent: Distended, Firm, Tenderness - Extremities Exam Extremities exam: Positive for: normal inspection. Negative for: pedal edema, tenderness - Neurological Exam Neurological exam: Alert, Oriented x3 - Skin Skin Exam: Dry, Intact, Normal Color, Warm Results - Vital Signs Recent Vital Signs: Last Vital Signs Temp 98.2 F 03/16/17 05:51 Pulse 71 03/16/17 05:51 Resp 19 03/16/17 05:51 BP 143/78 03/16/17 05:51 Pulse Ox 98 03/16/17 02:45 - Labs Result Diagrams: 03/15/17 23:10 03/15/17 23:10 Assessment & Plan - Assessment and Plan (Free Text) Assessment: 81 year old female with past medical history of arthritis, HTN, anxiety, high cholesterol, TIA, presents with near syncope and general weakness. Plan: 1. near syncope - most likely due to medications vs. anxiety - head Ct reviewed showed no acute intracranial hemorrhage, or suspicious mass effect - Physical therapy - psych consult 2. HTN - controlled - cont home mediation norvasc 3. hyperlipidemia - cont home med Lipitor <Bill Montoya S - Last Filed: 03/16/17 19:57> Results - Vital Signs Recent Vital Signs: Last Vital Signs Temp 97.9 F 03/16/17 12:00 Pulse 85 03/16/17 14:00 Resp 19 03/16/17 12:00 BP 145/83 03/16/17 12:00 Pulse Ox 98 03/16/17 02:45 - Labs Result Diagrams: 03/15/17 23:10 03/15/17 23:10 Assessment & Plan - Assessment and Plan (Free Text) Plan: Pt is seen and examined. Note of medical staff specialist reviewed and I am in agree with it. Reviewed Labs and medications. Reviewed notes. Pt was seen by Dr Mckinney and cleared to be discharged. She will f/u with Dr Mckinney and Dr Pop.
[2017-03-16] MEDS ORDERED: Latanoprost 2.5 ml Opht Soln OU SCH (10:00)
[2017-03-16 14:03] VITALS: BP 145/83; TEMP 97.9
[2017-03-16 16:59] VITALS: PULSE 85
--- NOTE | 2017-03-16 23:00 | CARD ---
APPROVED REPORT EKG Measurement Heart [id number] <Conclusion> Normal sinus rhythm Normal ECG
--- NOTE | 2017-03-17 01:40 | CON ---
DATE: SUBJECTIVE: The patient is an 81-year-old white female with an apparent approximately six months history of undergoing what appeared to be colored visual distortions, colored squares in her visual field. These have started in 05/2016 and has made her anxious. The patient has no prior psychiatric history. She does have a past history of arthritis, hypertension, hypercholesterolemia, TIA and who was complaining of near syncope and lightheadedness while walking as well as general weakness and body aches for at least two weeks. A CT scan of the head recently was negative. She is under the care of Dr. Abilio Pop, her PMD who started her on Zoloft several days ago and she has had some gastric distress since then (this was presumably for anxiety). She reports also she has not been sleeping and has had decreased appetite. She reports "hallucinations" and also see shadows an objects on the wall that also started earlier this year. She has seen a number of doctors for this, but these workups apparently with the neurologist and janitorial account manager have been nonproductive. She is a [place] of [place] and a high a school graduate. She has worked as a homemaker for many years, but is retired for 15 years. She had been young and her at 25 of what appears to be a blood clot. She has two children from that union. She has subsequently remarried and has been for over 37 years. She has one brother who is at her bedside. She has not had a history of substance use. She presently is being maintained on Lipitor, Norvasc, and Xalatan. She was tried on the benzodiazepine (Xanax) by her PMD previously. I will presently start her on low-dose Klonopin and would recommend a followup. Her symptoms have not appeared to be those of classical "hallucinations" and I have suggested that the patient continue outpatient monitoring, which she appears to be agreeable to. A CBC and differential was within normal limits. Urine drug screen showed a small amount of blood. Biochemical profile showed a slightly elevated glucose of 121 and alkaline phosphatase of 141. DIAGNOSIS: Uncertain, rule out visual hallucinations. I have started the patient on low-dose Klonopin. Thank you, as always, for this consultation. Nathan Mckinney MD/ PhD
== END 2017-03-16 17:25 | disposition home or self-care (01) ==
LOC: ED 20:49 → ERH 03-16 01:19 → 2RSO 03-16 02:54
PROVIDERS: ADMIT Internal Medicine Nephrology; ATTEND Internal Medicine Nephrology
DX: R55 Syncope and collapse (principal); R42 Dizziness and giddiness; R53.1 Weakness; I10 Essential (primary) hypertension; E78.00 Pure hypercholesterolemia, unspecified; E53.8 Deficiency of other specified B group vitamins; K21.9 Gastro-esophageal reflux disease without esophagitis; F41.9 Anxiety disorder, unspecified; M19.90 Unspecified osteoarthritis, unspecified site; Z86.73 Personal history of transient ischemic attack (TIA), and cerebral infarction without residual deficits; Z90.710 Acquired absence of both cervix and uterus; Z90.49 Acquired absence of other specified parts of digestive tract; Z79.82 Long term (current) use of aspirin; Z79.899 Other long term (current) drug therapy
CPT/HCPCS: 70450; 71020; 80053; 81001; 82550; 83735; 83880; 84100; 84484; 85025; 85610; 85730; 93005; 97116; 97161; 99284; G0378; G8978; G8979; G8980